=== PATIENT | female | born 1990 | race African-American/Black ===

== ENCOUNTER 2018-03-12 20:15 | Emergency (ER) | payer MEDICAID, OTHER ==
[~2018-03-12 20:15] MED LIST: IBUP600 PO; ONDA4 PO; Z.0.NO CURRENT MEDS
[2018-03-12 20:21] VITALS: BP 139/84; PULSE 103; RESP 20; TEMP 98.4; O2SAT 98
[2018-03-12] MEDS ORDERED: TETANUS/DIPHTHERIA TOXOID ADULT 0.5 ML VIAL IM ONE (22:30)
[2018-03-12] MEDS ORDERED: ACETAMINOPHEN/HYDROcodone 325 MG/5 MG TAB PO ONE (22:30)
[2018-03-12] MEDS ORDERED: AMOXICILLIN/CLAVULANATE K 875 MG TAB PO ONE (22:30)
--- NOTE | 2018-03-12 22:33 | PD ---
HPI Chief Complaint: Bite or Sting Time Seen by Provider: 21:48 Travel History International Travel<30 days: No Contact w/Intl Traveler<30days: No Traveled to known affect area: No History of Present Illness HPI 28-year-old right-hand dominant black female presents emergency department for evaluation of a dog bite to her left hand. This occurred prior to arrival. She states that she attempted to help her pitbull who was choking on something in the yard when he last out and bit her in the left hand. He cause a puncture wound to the palm between the index and middle finger. Patient's complaining of pain. She denies any numbness or tingling. She has decreased range of motion due to pain. She has not had a tetanus shot over 5 years. She states that her dog is not immunized. She reports that the dog was acting normal prior to choking episode. PFSH Past Medical History Anemia: Yes (DURING ) Asthma: No Blood Disorders: No Anxiety: No Depression: Yes (POST LASTED X1 MONTH) Heart Rhythm Problems: No Cancer: No Cardiovascular Problems: No High Cholesterol: No Chemotherapy: No Chest Pain: No Congestive Heart Failure: No COPD: No Diabetes: No Endocrine: No Gastrointestinal Disorders: Yes (NAUSEA) Genitourinary: No Hypertension: No Immune Disorder: No Musculoskeletal: No Neurologic: No Psychiatric: No Reproductive: Yes (POST BLEEDING) Respiratory: No Myocardial Infarction: No Radiation Therapy: No Thyroid Disease: No Tetanus Vaccination: > 5 Years ?: Not LMP: 03/12/18 : 3 Para: 2 Dilation and Curettage (D&C): Yes (POST BLEEDING) Past Surgical History Surgical History: No Previous Surgery Gynecologic Surgery: Yes (D/C BLEEDING) Other Surgery: Yes (BLEEDING AFTER FIRST CHILD) Social History Alcohol Use: No Tobacco Use: Yes Substance Use: No Allergies-Medications (Allergen,Severity, Reaction): Coded Allergies: Fish Containing Products (Unverified Allergy, Severe, SWELLING, N/V, ) latex (Unverified Allergy, Severe, Swelling, 03/12/18) promethazine (Unverified Allergy, Severe, SWELLING RASH BREATHING PROBLEMS , 03/12/18) Reported Meds & Prescriptions Reported Meds & Active Scripts Active [place] (Hydrocodone-Acetaminophen) 5 Mg-325 Mg Tab 1 Tab PO Q4H PRN 2 Days Augmentin (Amoxicillin-Clavulanate) 875-125 Mg Tab 1 Tab PO BID 10 Days Review of Systems General / Constitutional: No: Fever Eyes: No: Visual changes HENT: No: Headaches Cardiovascular: No: Chest Pain or Discomfort Respiratory: No: Shortness of Breath Gastrointestinal: No: Abdominal Pain Genitourinary: No: Dysuria Musculoskeletal: Positive: Limited ROM, Edema, Pain Skin: No Rash Neurologic: No: Weakness Psychiatric: No: Depression Endocrine: No: Polydipsia Hematologic/Lymphatic: No: Easy Bruising Physical Exam Narrative GENERAL: Well-developed, well-nourished in no acute distress. Nontoxic appearing. HEAD: Normocephalic, atraumatic. EYES: Pupils equal round and reactive. Extraocular motions intact. No scleral icterus. No injection or drainage. ENT: TMs clear without erythema. The external auditory canals clear. Nose: clear . Posterior pharynx is pink and moist. No tonsillar edema or exudate. Uvula midline. Airway patent. NECK: Trachea midline.Supple, nontender, moves head freely. No central bony tenderness or spasm. CARDIOVASCULAR: Regular rate and rhythm without murmurs, gallops, or rubs. RESPIRATORY: Clear to auscultation. Breath sounds equal bilaterally. No wheezes , rales, or rhonchi. GASTROINTESTINAL: Abdomen soft, non-tender, nondistended. No hepato-splenomegaly , or palpable masses. No guarding. EXTREMITIES: No clubbing, cyanosis. Examination of the left hand reveals mild swelling of the for hand and palm. There is a tooth puncture wound to the distal third of the left niko volar surface between the second and third metacarpals. Patient has intact sensation in all fingers. Good cap refill. She is able to fully extend but has slightly decreased flexion in the index and middle finger secondary to pain. This is not through and through. There is some mild bruising. No pain in the fingers, wrist, elbow, shoulder. Intact median/ulnar/radial nerves. No other injuries. The right upper extremity as well as lower extremities are unremarkable. BACK: Nontender without deformity or crepitance. No flank tenderness. Data Data Last Documented VS Vital Signs Date Time Temp Pulse Resp B/P (MAP) Pulse Ox O2 Delivery O2 Flow Rate FiO2 03/12/18 20:21 98.4 103 20 139/84 (102) 98 Orders Orders Amoxicil-Clavulanate (Augmentin) (03/12/18 22:30) Tetanus/Diphtheria Tox Adult (Tetanus/Di (03/12/18 22:30) Acetamin-Hydrocod 325-5 Mg ([place] 5-325 (03/12/18 22:30) Hand, Complete ([id number]) (03/12/18 22:29) Ice/Cold Pack (03/12/18 22:29) Ed Discharge Order (03/12/18 22:48) MDM Medical Decision Making Medical Screen Exam Complete: Yes Emergency Medical Condition: Yes Medical Record Reviewed: Yes Interpretation(s) Left hand: Negative for acute fracture. Soft tissue swelling. No air in the soft tissue. No foreign body. Differential Diagnosis MDM: High Differential diagnoses: Fracture, sprain, strain, dislocation, contusion, neurovascular injury, dog bite Narrative Course Patient is given Augmentin 875 mg p.o., tetanus immunization, and [place] 5 mg p.o. X-ray of the left hand. The patient has wash her hands thoroughly in the sink with Hibiclens. X-ray of the left hand is negative for bony injury. Patient is instructed to keep her hand elevated above the heart at all times. She should have this rechecked again in 48 hours by her doctor or the ER. She is also instructed to have her dog immunized. Diagnosis Primary Impression: Dog bite left hand Patient Instructions: Narcotic given in the ED, General Instructions Departure Forms: Tests/Procedures, Work Release Special Instructions: No work 2 days. Additional Instructions: Rest. Elevation above the heart at all times. Ice for the next 1-2 days. 3 Advil every 6 hours. Augmentin. [place] for severe pain. Recheck with your doctor or the emergency room in 48 hours. Return to ER sooner if any problems. Med/Other Pt SpecificInfo: Prescription(s) given Scripts Hydrocodone-Acetaminophen ([place]) 5 Mg-325 Mg Tab 1 TAB PO Q4H Y for PAIN for 2 Days, #12 TAB 0 Refills Prov: Les Alamzan MD 03/12/18 Amoxicillin-Clavulanate (Augmentin) 875-125 Mg Tab 1 TAB PO BID for Infection for 10 Days, #20 TAB 0 Refills Prov: Les Almazan MD 03/12/18 Disposition: 01 DISCHARGE HOME Condition: Stable Sinan Thapa Mar 12, 2018 22:33
--- NOTE | 2018-03-12 22:45 | RADRPT ---
EXAM DATE/TIME: 03/12/2018 22:37 [facility] COMPARISON: No previous studies available for comparison. INDICATIONS : Left hand pain from dog bite. MEDICAL HISTORY : None. SURGICAL HISTORY : None. ENCOUNTER: Initial ACUITY: 1 day PAIN SCORE: 6/10 LOCATION: Left hand FINDINGS: Three view examination of the left hand demonstrates no dislocation, or fracture. There does appear to be soft tissue swelling at the thenar eminence. The carpal bones appear intact. The interphalang eal and metacarpophalangeal joints are intact. Bony mineralization is normal. CONCLUSION: Soft tissue swelling at the thenar eminence. No foreign body is seen. No fracture is seen. Sunny Medina MD on March 12, 2018 at 22:41 Board Certified Radiologist. This report was verified electronically.
[2018-03-12] MEDS ORDERED: NORC5TAB PO (22:47)
[2018-03-12] MEDS ORDERED: AUGM875T3 PO (22:47)
== END 2018-03-13 00:01 | disposition home or self-care (01) ==
LOC: NEPD 20:15
DX: S61.452A Open bite of left hand, initial encounter (principal); W54.0XXA Bitten by dog, initial encounter; Z23 Encounter for immunization; Z72.0 Tobacco use; Z88.8 Allergy status to other drugs, medicaments and biological substances
CPT/HCPCS: 73130; 90471; 90714